=== PATIENT | female | born 1995 | race Two or more races ===

== ENCOUNTER 2019-08-06 12:34 | Emergency (ER) | payer MEDICAID ==
[~2019-08-06] VITALS: Ht 160 cm; Wt 61.2 kg
[~2019-08-06 12:34] MED LIST: ACETAMINOPHEN-1 EAC1 PO
[2019-08-06] MEDS ORDERED: ALBUTEROL SULF8.5 GM INH (12:52)
--- NOTE | 2019-08-06 13:07 | Emergency Room Report ---
History of Present Illness General Chief Complaint: Earache Source: Patient Present Illness HPI 23-year-old female with no significant past medical history here complaining of 3 days of left ear pain after using Q-tips. Rating pain 10 out of 10 without radiation upon palpation of tragus. Denies any pus drainage, fever and chills, sore throat, cough and congestion. Has been taking Advil with minimal relief. Denies any bleeding through the ear. Denies recent travel, sick contact. Allergies: Coded Allergies: [place] (Verified Allergy, Intermediate, hives, 04/15/13) Patient History Past Medical History: see triage record Past Surgical History: unable to obtain Pertinent Family History: none Now: No Immunizations: UTD Reviewed Nursing Documentation: PMH: Agreed; PSxH: Agreed Nursing Documentation-PMH Past Medical History: No History, Except For Hx Asthma: Yes Review of Systems All Other Systems: negative except mentioned in HPI Physical Exam Vital Signs Date Time Temp Pulse Resp B/P (MAP) Pulse Ox O2 Delivery O2 Flow Rate FiO2 08/06/19 12:49 98.2 88 17 123/78 (93) 97 Room Air Sp02 EP Interpretation: reviewed, normal General Appearance: no apparent distress, alert, GCS 15, non-toxic Head: normocephalic, atraumatic Eyes: bilateral eye normal inspection, bilateral eye PERRL ENT: normal voice, uvula midline, moist mucus membranes, other - External left ear canal erythematous, tragus tender to palpation Neck: full range of motion, supple, thyroid normal, no bony tend, supple/symm/ no masses Respiratory: chest non-tender, lungs clear, normal breath sounds, no wheezing, speaking full sentences Cardiovascular #1: regular rate, rhythm, no edema, no murmur Gastrointestinal: normal bowel sounds, non tender, soft, non-distended, no guarding, no rebound Rectal: deferred Genitourinary: no CVA tenderness Musculoskeletal: back normal Neurologic: alert, motor strength/tone normal, oriented x3, sensory intact, responsive, speech normal Psychiatric: judgement/insight normal, memory normal, mood/affect normal, no suicidal/homicidal ideation Skin: no rash Lymphatic: no adenopathy Medical Decision Making PA Attestation All my diagnosis and treatment plans were reviewed ad discussed with my supervising physician Dr. Salas Diagnostic Impression: Primary Impression: Otitis externa ER Course 23-year-old female with no significant past medical history here complaining of 3 days of left ear pain after using Q-tips. Rating pain 10 out of 10 without radiation upon palpation of tragus. Denies any pus drainage, fever and chills, sore throat, cough and congestion. Has been taking Advil with minimal relief. Denies any bleeding through the ear. Denies recent travel, sick contact. Ddx considered but are not limited to: Otitis media, otitis externa, mastoiditis , strep pharyngitis, URI, tonsillitis, Vital signs: are WNL, pt. is afebrile H&PE are most consistent with: Otitis externa ORDERS: Ofloxacin otic ED INTERVENTIONS: None required at this time. DISCHARGE: At this time pt. is stable for d/c to home. Will provide printed patient care instructions, and any necessary prescriptions. Care plan and follow up instructions have been discussed with the patient prior to discharge. Take medication as directed, follow-up with your primary care provider, if worsening symptoms return to the emergency room Last Vital Signs Date Time Temp Pulse Resp B/P (MAP) Pulse Ox O2 Delivery O2 Flow Rate FiO2 08/06/19 12:49 98.2 88 17 123/78 (93) 97 Room Air Disposition: HOME, SELF-CARE Condition: Stable Scripts Ofloxacin (Ofloxacin) 5 Ml Drops 10 DROP OT DAILY for 7 Days, #5 ML Prov: Oswald Simon 08/06/19 Patient Instructions: Otitis Externa Additional Instructions: Take medication as directed, follow-up with her primary care provider, if worsening symptoms return to the emergency room Oswald Simon Aug 06, 2019 13:07
[2019-08-06] MEDS ORDERED: OFLOXACIN10 ML OT (13:10)
--- NOTE | 2019-08-06 13:15 | NUR ---
ER DISCHARGE NOTE: Patient is cleared to be discharged per ERMD, pt is aox4, on room air, with stable vital signs. pt was given dc and prescription instructions, pt was able to verbalize understanding, pt is able to ambulate with steady gait. pt took all belongings.
[2019-08-06 13:53] VITALS: BP 123/78
== END 2019-08-06 13:15 | disposition home or self-care (01) ==
LOC: EMR 13:05
DX: H60.92 Unspecified otitis externa, left ear (principal); Z91.018 Allergy to other foods
CPT/HCPCS: 99282